=== PATIENT | female | born 2000 | race Caucasian/White ===

== ENCOUNTER 2020-05-23 13:18 | Emergency (ER) | payer SELFPAY ==
[~2020-05-23] VITALS: Ht 160 cm; Wt 55.0 kg
[2020-05-23 14:57] LABS: BASOPHILS % (AUTO) 1 % (0-1); EOSINOPHILS % (AUTO) 1 % (1-7); LYMPHOCYTES % (AUTO) 33 % (22-44); MEAN CORPUSCULAR HEMOGLOBIN 30.9 pg (27.0-34.8); MEAN CORPUSCULAR HGB CONC 33.1 g/dL (32.4-35.8); MEAN PLATELET VOLUME 7.7 fL (7.4-10.4); MONOCYTES % (AUTO) 7 % (2-9); NEUTROPHILS % (AUTO) 58 % (42-75); PLATELET COUNT 214 x10^3/uL (130-400); RED BLOOD COUNT 4.34 x10^6/uL (3.82-5.3); RED CELL DISTRIBUTION WIDTH 14.1 % (9.6-15.2)
[2020-05-23 14:59] LABS: MD NO
[2020-05-23 15:09] LABS: ALANINE AMINOTRANSFERASE 25 U/L (12-78); ALBUMIN 3.8 g/dL (3.4-5.0); ANION GAP 5 mmol/L (5-15); CALCIUM 8.9 mg/dL (8.5-10.1); CHLORIDE 109 mmol/L (98-107); CREATININE 0.73 mg/dL (0.55-1.02)
[2020-05-23 15:14] LABS: ALKALINE PHOSPHATASE 81 U/L (45-117); BILIRUBIN,TOTAL 0.4 mg/dL (0.2-1.0); TOTAL PROTEIN 6.8 g/dL (6.4-8.2)
[2020-05-23 17:13] VITALS: BP 151/86
[2020-05-23] MEDS ORDERED: ONDANSETRON ODT 4 MG PO ONE (17:30)
[2020-05-23] MEDS ORDERED: OXYcodone/APAP 5/325MG TABLET PO ONE (17:30)
[2020-05-23] MEDS ORDERED: ONDANSETRON ODT 4 MG ONE (17:33)
[2020-05-23] MEDS ORDERED: OXYcodone/APAP 5/325MG TABLET ONE (17:33)
== END 2020-05-23 17:50 | disposition home or self-care (01) ==
LOC: ED 14:00
DX: N83.291 Other ovarian cyst, right side (principal)
CPT/HCPCS: 36415; 76830; 80053; 83690; 84703; 85025; 99284; Q0162